=== PATIENT | female | born 2000 | race Caucasian/White ===

== ENCOUNTER 2018-06-21 15:33 | Emergency (ER) | payer BC ==
[2018-06-21] MEDS ORDERED: NS 1,000 ML IV ONE (16:00)
[2018-06-21 16:14] LABS: PLATELET COUNT 245 10^3/uL (150-400)
--- NOTE | 2018-06-21 16:23 | EDPHY ---
H & P Stated Complaint: AMS "FOUND SELF ON FLOOR" SPACY/ HAD SYNCOPE IN MAY WITH HEAD INJ Time Seen by Provider: 06/21/18 15:46 HPI/ROS: CHIEF COMPLAINT: Altered mental status HISTORY OF PRESENT ILLNESS: 17-year-old female presents with altered mental status. Last night she stayed up late doing class work. She got approximately 4-5 hours of sleep, which is not unusual for her. She awoke this morning at 0830 and walked to the bathroom. The next thing she remembers is waking up on the floor at 2:00 p.m.. She felt cool and clammy when she woke up. She walked downstairs and found her father. According to him, she was confused and sluggish at home. She now seems to be improving. No prior history of seizure disorder. No alcohol or drug use. REVIEW OF SYSTEMS: complete 10 point ROS negative except at noted in the HPI - Personal History LMP (Females 10-55): 22-28 Days Ago Current Tetanus Diphtheria and Acellular Pertussis (TDAP): Yes - Medical/Surgical History Hx Asthma: No Hx Chronic Respiratory Disease: No Hx Diabetes: No Hx Cardiac Disease: No Hx Renal Disease: No Hx Cirrhosis: No Hx Alcoholism: No Hx HIV/AIDS: No Hx Splenectomy or Spleen Trauma: No Other PMH: DENIES - Social History Smoking Status: Never smoked Alcohol Use: None Drug Use: None - Physical Exam Exam: General Appearance: Alert, pleasant, smiling Head: No tenderness or swelling Eyes: Pupils equal and round, no conjunctival pallor or injection ENT, Mouth: Mucous membranes moist Neck: Normal inspection, no tenderness Respiratory: Lungs are clear to auscultation Cardiovascular: Regular rate and rhythm Gastrointestinal: Abdomen is soft and nontender Neurological: Alert, oriented x3, cranial nerves II through XII intact, motor 5 /5, sensory intact to light touch, normal gait. Skin: Warm and dry Extremities: Normal inspection, no tenderness Psychiatric: Mood and affect normal Constitutional: Initial Vital Signs Temperature (C) 36.5 C 06/21/18 15:40 Heart Rate 75 06/21/18 15:40 Respiratory Rate 18 06/21/18 15:40 Blood Pressure 110/74 06/21/18 15:40 O2 Sat (%) 97 06/21/18 15:40 O2 Delivery Mode Room Air Allergies/Adverse Reactions: No Known Allergies Allergy (Unverified 06/21/18 15:40) Home Medications: Medication Instructions Recorded NK [No Known Home Meds] 06/21/18 Medical Decision Making - Diagnostics EKG Interpretation: EKG interpreted by me reveals normal sinus rhythm, normal intervals, no ST or T segment changes. Interpretation: Normal EKG Imaging Results: Imaging Impressions Head CT 06/21/18 16:20 Impression: There is no acute abnormality identified on this unenhanced CT evaluation. If there is further clinical concern regarding the patient's symptoms, MR imaging is suggested, if not otherwise contraindicated. Findings were discussed with TEZ BUCKNER MD at 16:58, on 06/21/2018. Imaging: Discussed imaging studies w/ call center representative Radiologist ED Course/Re-evaluation: This pt presents after an unusual episode. DDx includes syncope, seizure or being asleep. No signs of injury on exam and neurologic exam is normal. She is not confused. Thorough evaluation, including laboratory studies, EKG and CT head are all unremarkable. I feel that she is safe and stable for discharge home. Understands not to drive until she is cleared by her physician. Differential Diagnosis: Altered mental status including but not limited to hypoglycemia, infectious process, electrolyte abnormality, head injury, CVA, and intoxicants. - Data Points Laboratory Results: Laboratory Results 06/21/18 16:00 06/21/18 16:00 06/21/18 06/21/18 06/21/18 16:00 16:00 16:00 WBC 8.02 10^3/uL 10^3/uL (3.80-9.50) RBC 4.22 10^6/uL 10^6/uL (4.18-5.33) Hgb 12.6 g/dL g/dL (12.6-16.3) Hct 37.8 % L % (38.0-47.0) MCV 89.6 fL fL (81.5-99.8) MCH 29.9 pg pg (27.9-34.1) MCHC 33.3 g/dL g/dL (32.4-36.7) RDW 12.5 % % (11.5-15.2) Plt Count 245 10^3/uL 10^3/uL (150-400) MPV 10.3 fL fL (8.7-11.7) Neut % (Auto) 55.2 % % (39.3-74.2) Lymph % (Auto) 32.8 % % (15.0-45.0) [place] % (Auto) 8.0 % % (4.5-13.0) Eos % (Auto) 2.9 % % (0.6-7.6) Baso % (Auto) 1.0 % % (0.3-1.7) Nucleat RBC Rel Count 0.0 % % (0.0-0.2) Absolute Neuts (auto) 4.43 10^3/uL 10^3/uL (1.70-6.50) Absolute Lymphs (auto) 2.63 10^3/uL 10^3/uL (1.00-3.00) Absolute Monos (auto) 0.64 10^3/uL 10^3/uL (0.30-0.80) Absolute Eos (auto) 0.23 10^3/uL 10^3/uL (0.03-0.40) Absolute Basos (auto) 0.08 10^3/uL 10^3/uL (0.02-0.10) Absolute Nucleated RBC 0.00 10^3/uL 10^3/uL (0-0.01) Immature Gran % 0.1 % % (0.0-1.1) Immature Gran # 0.01 10^3/uL 10^3/uL (0.00-0.10) Sodium 140 mEq/L mEq/L (135-145) Potassium 4.1 mEq/L mEq/L (3.3-5.0) Chloride 105 mEq/L mEq/L (97-110) Carbon Dioxide 25 mEq/l mEq/l (22-31) Anion Gap 10 mEq/L mEq/L (8-16) BUN 12 mg/dL mg/dL (7-23) Creatinine 0.7 mg/dL mg/dL (0.6-1.0) Estimated GFR > 60 Glucose 76 mg/dL mg/dL (70-100) Calcium 9.7 mg/dL mg/dL (8.5-10.4) Beta HCG, Qual NEGATIVE Medications Given: Discontinued Medications Sodium Chloride (Ns) 1,000 mls @ 0 mls/hr IV ONCE ONE PRN Reason: Wide Open Stop: 06/21/18 16:01 Last Admin: 06/21/18 16:00 Dose: 1,000 mls Departure - Departure Disposition: Home, Routine, Self-Care Clinical Impression: Syncope Qualifiers: Syncope type: vasovagal syncope Qualified Code(s): R55 - Syncope and collapse Condition: Good Instructions: Syncope (ED) Additional Instructions: Your blood tests and CT scan of the brain are normal today. The etiology of your symptoms is unclear, though you may have fainted or had a seizure. Return for recurrent symptoms or any concerns. Drink plenty of fluids and eat [address] until your cleared by your primary care physician. Referrals: Madeline Martinez MD [Primary Care Provider] - 1-2 days without fail Stand Alone Forms: School Excuse
[2018-06-21 17:26] VITALS: BP 118/62
--- NOTE | 2018-06-26 23:16 | CPEKG ---
Test Reason : OPEN Blood Pressure : / mmHG Vent. Rate : 069 BPM Atrial Rate : 068 BPM P-R Int : 123 ms QRS Dur : 103 ms QT Int : 411 ms P-R-T Axes : 063 068 046 degrees QTc Int : 441 ms Sinus rhythm Confirmed by Sobia Baird ([id number]) on 06/26/2018 11:15:54 PM Referred By: Confirmed By:Sobia Baird
== END 2018-06-21 17:19 | disposition home or self-care (01) ==
DX: R55 Syncope and collapse (principal)